=== PATIENT | male | born 1960 | race Caucasian/White ===

== ENCOUNTER 2025-03-20 13:10 | Emergency (ER) | payer OTHER, SELFPAY ==
--- OUTSIDE RECORDS SUMMARY | 2025-02-13 07:30 | XMS_ITS | Encounter Summary ---
Author Organization [facility] Address [address] [facility] [place] [address] Care Team Providers Care Commercial Appraiser Name Role Phone Anabell Lara MD Primary Care Provider + [phone] Neyda Horton PA-C Unavailable + [phone] Marito Lama MD Unavailable Encounter Details Date Type Department Care Team (Late st Contact Info) Description 02/13/2025 7:30 AM CDT Orders Only [facility] [address] [address] Persistent cough Social History Tobacco Use Types Packs/Day Years Used Date Smoking Tobacco: Never Smokeless Tobacco: Never Alcohol Use Standard Drinks/Week Comments No 0 (1 standard drink = 0.6 oz pur e alcohol) PHQ-2 Answer Date Recorded PHQ-2 Score 0 01/09/2025 Adolescent Education Answer Date Record ed Getting School Help Needed Not on file 03/20 Sex and Gender Information Value Date Recorded Sex Assigned at Not on file 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 Hurley, Ordering Provider for PFT andFENO This service provided today was under the supervising provider of the day Dr. Pham, who was available if needed. Pablo Mistry, RT documented in this encounter Plan of Treatment Upcoming Encounters Date Type Department Care Team (Late st Contact Info) Description 04/05/2025 8:00 PM CDT Therapy Visit [facility] [address] [facility] [address] [place] [address] 07/23/2025 10:30 AM SUPERVISOR SECURITIES VAULT Office Visit [address] [address] Marito Lama MD [address] [place] [address] documented as of this encounter Procedures Procedure Name Priority Date/Time Associated Diagnosis Comments IA NITRIC OXIDE GAS DETERMINATION Routine 02/13/2025 7:59 AM CDT Persistent cough IA DIFFUSING CAPACITY Routine 02/13/2025 7:59 AM CDT Persistent cough IA PLETHYSMOGRAPHY LUNG VOLUMES W/WO AIRWAY RESIST Routine 02/13/2025 7:59 AM CDT Persistent cough IA RESPIRATORY FLOW VOLUME LOOP Routine 02/13/2025 7:59 AM CDT Persistent cough IA VITAL CAPACITY TOTAL Routine 02/14/20 7:59 AM CDT Persistent cough EXHALED NITRIC OXIDE - FENO Routine 02/13/2025 7:56 AM CDT Persistent cough PFT GENERAL LAB TESTING Routine 02/14/20 7:34 AM CDT Persistent cough documented in this encounter Results * (ABNORMAL) Exhaled Nitric Oxide - FENO (02/13/2025 7:56 AM CDT) [facility] Pulmonary Function Test-FENO 55.5(A) 0 - 40 PPB us Parrish uHrley MD PFT ORDERABLES Final Result * General PFT Lab (Please always keep checked) (02/13/2025 7:34 AM CDT) [facility] FVC-Pred 3.32 L 02/13/2025 7:34 AM CDT [facility] [id number] 65 L 02/13/2025 7:34 AM CDT [facility] [id number]-Mbor 79 % 02/13/2025 7:34 AM CDT [facility] PFT [id number] 79 % 02/13/2025 7:34 AM CDT [facility] FEFMax-Pred 7.65 L/sec 02/13/2025 7:34 AM CDT [facility] PFT [id number] 2.27 L/sec 02/13/2025 7:34 AM CDT [facility] FVC-Pre 2.82 L 02/13/2025 7:34 AM CDT [facility] FVC-%Pred-Pre 84 % 02/13/2025 7:34 AM CDT [facility] P[facility] [id number]-Twr 78 L 02/13/2025 7:34 AM CDT [facility] FEV1-Pre 2.22 L 02/13/2025 7:34 AM CDT [facility] FEV1-%Pred-Pre 84 % 02/13/2025 7:34 AM CDT [facility] P[facility] [id number] 79 % 02/13/2025 7:34 AM CDT [facility] PFT [id number]-Bxn 79 % 02/13/2025 7:34 AM CDT [facility] PFT [id number]-%Pred-P re 99 % 02/13/2025 7:34 AM CDT [facility] FEFMax-Pre 6.45 L/sec 02/13/2025 7:34 AM CDT [facility] P[facility] FEFMax-%Pred-Pr e 84 % 02/13/2025 7:34 AM CDT [facility] [id number]-Dnt 2.13 L/sec 02/13/2025 7:34 AM CDT [facility] PFT TZB1465-%Pred-P re 93 % 02/13/2025 7:34 AM CDT [facility] P[facility] FIFMax-Pre 3.80 L/sec 02/13/2025 7:34 AM CDT [facility] ExpTime-Pre 5.82 sec 02/13/2025 7:34 AM CDT [facility] VC-Pred 4.01 L 02/13/2025 7:34 AM CDT [facility] P[facility] IC-Pred 2.93 L 02/13/2025 7:34 AM CDT [facility] ERV-Pred 0.95 L 02/13/2025 7:34 AM CDT [facility] P[facility] VC-Pre 2.84 L 02/13/2025 7:34 AM CDT [facility] VC-%Pred-Pre 70 % 02/13/2025 7:34 AM CDT [facility] PFT IC-Pre 2.49 L 02/13/2025 7:34 AM CDT [facility] P[facility] IC-%Pred-Pre 85 % 02/13/2025 7:34 AM CDT [facility] PFT ERV-Pre 0.35 L 02/13/2025 7:34 AM CDT [facility] ERV-%Pred-Pre 36 % 02/13/2025 7:34 AM CDT [facility] PFT FRCPleth-Pred 2.90 L 02/13/2025 7:34 AM CDT [facility] PFT RVPleth-Pred 1.91 L 02/13/2025 7:34 AM CDT [facility] P[facility] TLCPleth-Pred 5.85 L 02/13/2025 7:34 AM CDT [facility] P[facility] Gaw-Pred 1.03 L/s/cmH2O 02/13/2025 7:34 AM CDT [facility] PFT sRaw-Pred < 4.76 cmH2O*s 02/13/2025 7:34 AM CDT [facility] PFT sGaw-Pred 0.20 1/cmH2O*s 02/13/2025 7:34 AM CDT [facility] PFT FRCPleth-Pre 2.36 L 02/13/2025 7:34 AM CDT [facility] PFT FRCPleth-%Pred- Pre 81 % 02/13/2025 7:34 AM CDT [facility] PFT RVPleth-Pre 2.01 L 02/13/2025 7:34 AM CDT [facility] PFT RVPleth-%Pred-P re 105 % 02/13/2025 7:34 AM CDT [facility] PFT TLCPleth-Pre 4.86 L 02/13/2025 7:34 AM CDT [facility] PFT TLCPleth-%Pred- Pre 83 % 02/13/2025 7:34 AM CDT [facility] PFT DLCOunc-Pred 22.52 ml/min/mmH g 02/13/2025 7:34 AM CDT [facility] PFT DLCOunc-Pre 23.93 ml/min/mmH g 02/13/2025 7:34 AM CDT [facility] P[facility] DLCOunc-%Pred-P re 106 % 02/13/2025 7:34 AM CDT [facility] PFT VA-Pre 4.66 L 02/13/2025 7:34 AM CDT [facility] PFT VA-%Pred-Pre 89 % 02/13/2025 7:34 AM CDT [facility] PFT 02/13/2025 7:34 AM CDT Narrative [facility] PFT - 02/13/2025 7:34 AM CDT The FEV1/FVC is normal. The FEV1 is normal. The FVC is normal. The FEV1Q is 4.45 . The TLC by body plethysmography is normal. The DLCO is normal; however, the diffusing capacity was not corrected for the patient's hemoglobin. Conclusion: Normal spirometry. Normal lung volumes by plethysmography. The DLCO is normal. FeNO > 50 ppb suggests that airway eosinophilia and responsiveness to corticosteroids are likely. This Completed, Posted and Locked interpretation has been electronically signed by Christina Faustin on 02/14/2025 at 6:59 PM. us Parrish Hurley MD PFT ORDERABLES Final Result [facility] PFT documented in this encounter Visit Diagnoses Diagnosis Persistent cough Cough documented in this encounter Care Teams Commercial Appraiser Relationship Specialty Start Date End Date Anabell Lara MD [facility] [address] [place] [address] PCP - General Internal Medicine 02/28/24 Neyda Horton PA-C [address] [place], [place] [phone] Physician Psychopaedic Nurse Pulmonary Disease 10/03/24 Marito Lama MD [address] [address] Assigned Sleep Provider 01/16/25 documented as of this encounter
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
--- OUTSIDE RECORDS SUMMARY | 2025-03-20 11:45 | XMS_ITS | Encounter Summary ---
Author Organization [facility] Address [address] [facility] [place] [address] Care Team Providers Care Telecommunications Line Installer Name Role Phone Anabell Lara MD Primary Care Provider [phone] Neyda Horton PA-C Unavailable Marito Lama MD Unavailable Parrish Hurley MD Unavailable [phone] Reason for Visit * Reason Comments Urgent Care Right leg pain , wan ts to r/o blood clot aware no US . Encounter Details Date Type Department Care Team (Late st Contact Info) Description 03/20/2025 11:45 AM CDT Office Visit 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 Not on file Not on file documented as of this encounter Last Filed Vital Signs Vital Sign Reading Time Taken Comments Blood Pressure 112/67 03/20/2025 12:05 PM CDT Pulse 79 03/20/2025 12:05 PM CDT Temperature 36.5 C (97.7 F) 03/20/2025 12:05 PM CDT Respiratory Rate 18 03/20/2025 12:05 PM CDT Oxygen Saturation 98% 03/20/2025 12:05 PM CDT Inhaled Oxygen Concentration - - Weight 86.2 kg (190 lb) 03/20/2025 12:05 PM CDT Height 162.6 cm (5' 4) 03/20/2025 12:05 PM CDT Body Mass Index 32.61 03/20/2025 12:05 PM CDT documented in this encounter Patient Instructions * Patient Instructions* Ivania Mina PA-C - 03/20/2025 11:45 AM CDT I recommend follow up with Orthopedic as scheduled. Please go to the Emergency room if any worsening symptoms. documented in this encounter Progress Notes * Kristyn Collins LPN - 03/20/2025 11:45 AM CDT Urgent Care Clinic Visit Chief Complaint Patient presents with Urgent Care Right leg pain , wants to r/o blood clot aware no US . 03/20/2025 12:05 PM Additional Questions Roomed by LS Accompanied by self * Ivania Mina PA-C - 03/20/2025 11:45 AM CDT Assessment & Plan Pain of right lower extremity Acute problem. Per patient report he was evaluated by orthopedic provider at [facility] 4 days ago, per patient report x-ray of the right hip and right knee were negative. He is awaiting prior authorizationto undergo an MRI of the right hip and knee. He is presenting to urgent care today due to concern for a possible blood clot. Exam is negative for calf swelling or calf pain. No posterior knee pain. Negative Sekou's sign. Wells score of zero. We discussed very low suspicion for a DVT. Unfortunately patient is not an established patient with [facility], unable to refer to the [facility]. I discussed will need follow-up in the ED or an urgent care center with ultrasound availability to definitively rule out a DVT. Patient agrees with the plan. Return in about 1 week (around 03/27/2025) for Symptoms failing to improve. LILIAM Ross [facility] aSnds is a 64 year old male who presents to clinic today for the following health issues: Chief Complaint Patient presents with Urgent Care Right leg pain , wants to r/o blood clot aware no US . 03/20/2025 12:05 PM Additional Questions Roomed by LS Accompanied by self HPI Patient is presenting to urgent care today with complaint of right lower extremity, pain with ambulation. Onset of symptoms 4 days ago. He denies any trauma or injury. He denies any calf pain, deniesany posterior calf pain, denies any calf swelling. He notes he was evaluated by a provider at [facility], x-rays of the right knee and right hip were negative. It was recommended to have an MRI, currently undergoing prior authorization approval from his insurance. He notes he tried to schedule an appointment with his primary care provider today Dr. Lara in [place] and she recommended to be seen in urgent care for a possible blood clot. Patient denies any smoking history. No recent travel. No new medication. Review of Systems Constitutional, HEENT, cardiovascular, pulmonary, GI, , musculoskeletal, neuro, skin, endocrine and psych systems are negative, except as otherwise noted. Objective BP 112/67 Pulse 79 Temp 97.7 ??F (36.5 ??C) (Oral) Resp 18 Ht 1.626 m (5' 4) Wt 86.2 kg (190 lb) SpO2 98% BMI 32.61 kg/m?? Physical Exam GENERAL: alert and no distress MS: Right lower leg: no gross musculoskeletal defects noted, no edema, no calf edema noted, no tenderness to palpation right posterior knee, he is limping due to pain, Negative Sekou's sign documented in this encounter Plan of Treatment Upcoming Encounters Date Type Department Care Team (Late st Contact Info) Description 04/05/2025 8:00 PM CDT Therapy Visit 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 [address] [place] [address] PCP - General Internal Medicine 02/28/24 Neyda Horton PA-C [address] [place] [address] Physician Cytogeneticist Pulmonary Disease 10/03/24 Marito Lama MD [address] [place] [address] [place] [phone] Assigned Sleep Provider 01/16/25 Parrish Hurley MD [address] [place] [phone] Assigned Pulmonology Provider 03/19/25 documented as of this encounter
--- OUTSIDE RECORDS SUMMARY | 2025-03-20 13:12 | XMS_ITS | Encounter Summary ---
Author Organization [place] Address [address] [facility] 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 Gender Identity Not on file Sexual Orientation Not on file Occupation Industry Job Start Date Job End Date [employer] Not on file Not on file Not on file documented as of this encounter Plan of Treatment Upcoming Encounters Date Type Department Care Team (Late st Contact Info) Description 04/05/2025 8:00 PM CDT Therapy Visit [facility] Sleep [facility] [address] [phone] 07/23/2025 10:30 AM MEAT TEAM LEAD Office Visit [facility] Sleep [facility] [address] [place] [phone] Marito Lama MD [address] [place], [place] [address] documented as of this encounter Visit Diagnoses Not on filedocumented in this encounter Care Teams Solar Hot Water Installer Relationship Specialty Start Date End Date Anabell Lara MD [facility] [address] [place] [address] PCP - General Internal Medicine 02/28/24 Neyda Horton PA-C [address] [place], [place] [id number] Physician Manager Banking Pulmonary Disease 10/03/24 Marito Lama MD [address] [place], [place] [address] Assigned Sleep Provider 01/16/25 Parrish Hurley MD [address] [place] [id number] Assigned Pulmonology Provider 03/19/25 documented as of this encounter
--- OUTSIDE RECORDS SUMMARY | 2025-03-20 13:12 | XMS_ITS | Clinical Summary ---
Author Organization [facility] Address [address] [place] [address] Care Team Providers Care Starter Mechanic Name Role Phone Clinic, No Pcp Or Primary Care Provider Unavaila ble Allergies Active Allergy Reactions Criticality Noted Date Comments Fish Oil Other - Describe In Comment Field 06/15/2016 ALL fresh fruit ALL fresh fruit Pectin Anaphylaxis High 02/23/2017 Gluten Nausea Only 02/23/2017 Latex *Unknown 08/21/2014 Morphine Hives 01/22/2013 Simvastatin Other - Describe In Comment Field 10/25/2006 ELEVATED LIVER TESTS ELEVATED LIVER TESTS Unlisted Allergen (Include Detail In Comments) Anaphylaxis High 07/08/2015 All fresh fruit has epi pen. Hydrocodone-Acetaminop hen Tongue Swelling 08/21/2014 Medications EPIPEN 2-MOLINA 0.3 mg/0.3 mL (1:1,000) injection 5 Active rosuvastatin (CRESTOR) 20 mg tablet Take 1 Tablet by mouth. 2 Active mupirocin (BACTROBAN OINTMENT) ointment 2 Active hydrocortisone (ANUSOL-HC) 2.5 % rectal cream APPLY A THIN LAYER TO THE AFFECTED AREA(S) TOPICALLY ONCE A DAY 30 DAYS 3 Active fluticasone (50 mcg per actuation) nasal solution (FLONASE) 3 Active Arnuity Ellipta 100 mcg/actuation inhaler TAKE 1 PUFF BY MOUTH EVERY DAY 3 Active clindamycin 1% (CLEOCIN-T) 1 % gel APPLY A THIN LAYER TO THE NAVAL EXTERNALLY ONCE DAILY IN THE MORNING. 30 DAY(S) 3 Active albuterol HFA (PRO-AIR; VENTOLIN; PROVENTIL) 90 mcg/actuation inhaler Inhale 2 Puffs by mouth. 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 Per CT scan completed in the ED, he still has a few kidney stones that he has not passed. Will refer to urology for follow up. - REFERRAL TO UROLOGY Easy bruisability 03/28/2019 Overview (12/21/2021): Last Assessment & Plan: A/P: Patient reporting easy bruising in general with more bleeding than usual after getting cuts for over 6 months. We will refer to hematology for further evaluation and treatment. We will check LFTs to screen for liver-related cause of bruising. Additionally checking urinalysis to screen for hematuria. Last urinalysis was positive for hematuria due to kidney stone. He has not noticed any blood in urine. Completing hepatic function as well as BMP. 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 Strong famhx of cardiac disease. Previously started on simvastatin in 2006, since DC due to elevated liver enzymes likely 2/2 weight loss following celiac disease diagnosis, LFTs since been stable and WNL. Will start statin and cont to monitor, referral to Cardiology to discuss additional screening. P: - start atorvastatin 20 mg daily - referral to Cardiology History of subdural hematoma and surgery on 09/2507/27/2017 Shoulder-hand syndrome 05/25/2017 s/p left shoulder open massi ve rotator cuff repair (2x2), acromioplasty, AC joint resection, coracoid decompression and biceps resection and transplantation on 02/22/17 Dr. Ortiz 03/02/2017 Family history of heart disease 02/09/2017 Overview (12/21/2021): Last Assessment & Plan: A/P: Patient's father with history of heart attack in early 40s, therefore checking cholesterol. Will consider starting patient on cholesterol medication depending on results. - PANEL LIPID; Future Impingement syndrome of left shoulder 02/12/2016 Osteoporosis 01/20/2015 Preventative health care 11/25/2014 Overview (12/21/2021): Last Assessment & Plan: A: Routine screening labs ordered as listed below. P: - PANEL LIPID - GLYCOSYLATED HGB - A1C - PSA SCREEN (PROSTATE SPEC AGN) s/p right shouler open massi ve rotator cuff repair, acromioplasty, AC joint resection, biceps tenodesis on 08/20/[address] 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 Currently in remission. He is over due for follow up with dermatology, encouraged him to schedule this next available. Incidental lung nodule, greater than or equal to 8mm 08/08/2014 Overview (12/21/2021): Overview: 8 mm noncalcified nodule (R upper lobe) seen on right shoulder CT 07/21/2014 in [facility]. Repeat CT chest on 11/28/14 and 07/07/15 show stable nodules. Possible work exposures to diesal fuels and lawn chemicals. Last Assessment & Plan: A: Right shoulder CT one year ago showed a lung nodule. Previous chest CT 11/28/14 showed stable nodules. Will get another chest CT today given current infectious symptoms. Possible work exposures to diesal fuels and lawn chemicals. Otherwise no smoking hx. P: Chest CT today shows stable nodules; no need for repeat imaging. Pain in joint, pelvic region and thigh 1 Presbyopia 04/21/2010 Celiac disease 12/23/2006 Overview (12/21/2021): Last Assessment & Plan: A: Reports a history of celiac disease and is on a gluten free diet. He has not had a bone scan for quite a few years, thus this is ordered today. Encouraged him to schedule this next available. IGG is also ordered today. He is followed at [facility] for this, which I encouraged him to continue. Will continue to monitor. P: - TISSUE TRANSGLUTAMINASE IGG - DEXA BONE DENSITY, AXIAL SKELETON, [place] Lumbago 12/01/2002 Overview (12/21/2021): Pain Low Back Resolved Problems Problem Noted Date Diagnosed Date Resolved Date Chronic left shoulder pain 02/12/2016 0 10/31/2023 Rotator cuff tendinopathy of left shoulder 02/12/2016 04/17/2018 Biceps degeneration of left shoulder 02/12/2016 04/17/2018 Left shoulder pain 01/20/2015 4 Immunizations Immunization Administration Dates Next Due Tdap 11/10/2009 Family History Medical History Relation Name Comments Heart Disease Father Parkinsons Cancer Mother ? type No Known Problems Sister Parkinsons Relation Name Status Comments Father Alive Mother Alive Sister Alive Social History Tobacco Use Types Packs/Day Years Used Date Smoking Tobacco: Never Smokeless Tobacco: Never Alcohol Use Standard Drinks/Week Comments No 0 (1 standard drink = 0.6 oz pur e alcohol) Social Connections Answer Date Recorded Frequency of Communication with Friends and Fami ly Not on file 10/31/2023 Financial Resource Strain Answer Date R ecorded Difficulty of Paying Living Expenses Not on file 06/27/2021 Difficulty of Paying Living Expenses Not on file 06/27/2021 Sex and Gender Information Value Date Recorded Sex Assigned at Not on file Legal Sex Male 7:09 AM RAG GRADER Gender Identity Not on file Sexual Orientation Not on file 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 on file Not on file Not on file Obstetrics History Last Filed Vital Signs Vital Sign Reading Time Taken Comments Blood Pressure 148/80 11/16/2022 10:05 AM CDT Pulse 53 11/16/2022 10:05 AM CDT Temperature 36.6 C (97.8 F) 11/16/2022 10:05 AM CDT Respiratory Rate 12 11/16/2022 10:05 AM CDT Oxygen Saturation 99% 11/16/2022 10:05 AM CDT Inhaled Oxygen Concentration - - Weight 74.8 kg (165 lb) 11/16/2022 10:05 AM CDT Height 162.6 cm (5' 4) 02/16/2022 7:18 PM CDT Body Mass Index 28.32 02/16/2022 7:18 PM CDT Plan of Treatment Health Maintenance Due Date Last Done Comments Depression screening for age 12+ 1973 HIV for age 15-65 1976 Hepatitis C screening for age 18-79 1979 Colonoscopy through age 75 2006 Lipids for age 45-75 2006 Pneumococcal series for age 50+ (1 of 1 - PCV) 2011 Zoster (shingles) series for age 50+ (1 of 2) 2011 Tetanus booster 11/11/2019 11/10/2009 BMI (ht and wt on same day) for age 18+ 12/21/2022 12/21/2021, 02/24/2017, 02/23/2017, Additional history exists COVID-19 vaccine series ( - season) 2025 Influenza Vaccine (#1) 2025 RSV vaccine for adults or (1 - 1-dose 75+ series) 2036 Hepatitis B series for 19+ Aged Out N o longer eligible based on patient's age to complete this topic Insurance [employer] [place] [id number] [employer] [place] [id number] Care Teams Starter Mechanic Relationship Specialty Start Date End Date Clinic, No Pcp Or . PCP - General 07/06/15
--- OUTSIDE RECORDS SUMMARY | 2025-03-20 13:12 | XMS_ITS | Encounter Summary ---
Author Organization [place] Address [address] [place] [address] Care Team Providers Care Automation Software Engineer Name Role Phone Anabell Lara MD Primary Care Provider [phone] Neyda Horton PA-C Unavailable + [phone] Marito Lama MD Unavailable Encounter Details Date Type Department Care Team (Latest Contact Info) Description 02/08/2025 Travel Social History Tobacco Use Types Packs/Day [...] on file Legal Sex Male 3:28 AM NATURALIZATION EXAMINER Gender Identity Not on file Sexual Orientation Not on file Occupation Industry Job Start Date Job End Date [employer] Not on file Not on file Not on file documented as of this encounter Plan of Treatment Upcoming Encounters Date Type Department Care Team (Late st Contact Info) Description 04/05/2025 8:00 PM CDT Therapy Visit [facility] Sleep [address] [phone] 07/23/2025 10:30 AM NATURALIZATION EXAMINER Office Visit [address] [phone] Marito Lama MD [address] [place] [phone] documented as of this encounter Visit Diagnoses Not on filedocumented in this encounter Care Teams Automation Software Engineer Relationship Specialty Start Date End Date Anabell Lara MD [facility] [address] [place] [address] PCP - General Internal Medicine 02/28/24 Neyda Horton PA-C [address] [place], [place] [address] Physician Machine Boss Pulmonary Disease 10/03/24 Marito Lama MD [address] [facility] [address] [place], [place] [address] Assigned Sleep Provider 01/16/25 documented as of this encounter
--- OUTSIDE RECORDS SUMMARY | 2025-03-20 13:12 | XMS_ITS | Encounter Summary ---
Author Organization [place] Address [address] [facility] [place] [address] Care Team Providers Care Railroad Dispatcher Name Role Phone No Ref-Primary, Physician Primary Care Provider System, Provider Not In Primary Care Provider Un available No Ref-Primary, Physician Primary Care Provider Anabell Lara MD Primary Care Provider [phone] Neyda Horton PA-C Unavailable Marito Lama MD Unavailable Parrish Hurley MD Unavailable [phone] Encounter Details Date Type Department Care Team (Late st Contact Info) Description 10/03/2017 MyC Medical Advice [facility] [address] [phone] Nevaeh Fox RN Social History Tobacco Use Types Packs/Day Years Used Date Smoking Tobacco: Never Smokeless Tobacco: Never Alcohol Use Standard Drinks/Week Comments No 0 (1 standard drink = 0.6 oz pur e alcohol) Sex and Gender Information Value Date Recorded Sex Assigned at Not on file Legal Sex Male 3:28 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 PAINTER Gender Identity Not on file Sexual Orientation Not on file Occupation Industry Job Start Date Job End Date [employer] Not on file Not on file Not on file documented as of this encounter Plan of Treatment Upcoming Encounters Date Type Department Care Team (Late st Contact Info) Description 04/05/2025 8:00 PM CDT Therapy Visit [facility] [place] [address] [place] [phone] 07/23/2025 10:30 AM OIL PAINTER Office Visit [facility] [place] [address] [place] [phone] Marito Lama MD [address] [place], [place] [phone] documented as of this encounter Visit Diagnoses Not on filedocumented in this encounter Care Teams Railroad Dispatcher Relationship Specialty Start Date End Date No Ref-Primary, Physician PCP - General 07/21/14 03/23/19 System, Provider Not In PCP - General Clinic 03/24/19 03/24/19 No Ref-Primary, Physician PCP - General 02/15/20 02/27/24 Anabell Lara MD [facility] [address] [place] [address] PCP - General Internal Medicine 02/28/24 Neyda Horton PA-C [address] [place] [address] Physician Per Diem Interpreter Pulmonary Disease 10/03/24 Marito Lama MD [address] [phone] Assigned Sleep Provider 01/16/25 Parrish Hurley MD [address] [place] [id number] Assigned Pulmonology Provider 03/19/25 documented as of this encounter
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
--- OUTSIDE RECORDS SUMMARY | 2025-03-20 13:12 | XMS_ITS | Encounter Summary ---
Author Organization [facility] Address [address] [place] [address] Care Team Providers Care Underwater Welder Name Role Phone No Ref-Primary, Physician Primary Care Provider System, Provider Not In Primary Care Provider Un available No Ref-Primary, Physician Primary Care Provider Anabell Lara MD Primary Care Provider [phone] Neyda Horton PA-C Unavailable Marito Lama MD Unavailable Parrish Hurley MD Unavailable [phone] Encounter Details Date Type Department Care Team (Late st Contact Info) Description 10/10/2017 MyC Medical Advice [facility] [place] [address] [phone] Nevaeh Fox RN Social History Tobacco Use Types Packs/Day Years Used Date Smoking Tobacco: Never Smokeless Tobacco: Never Alcohol Use Standard Drinks/Week Comments No 0 (1 standard drink = 0.6 oz pur e alcohol) Sex and Gender Information Value Date Recorded Sex Assigned at Not on file Legal Sex Male 3:28 AM WASHER HAND Gender Identity Not on file Sexual Orientation Not on file Occupation Industry Job Start Date Job End Date [employer] Not on file Not on file Not on file documented as of this encounter Plan of Treatment Upcoming Encounters Date Type Department Care Team (Late st Contact Info) Description 04/05/2025 8:00 PM CDT Therapy Visit [facility] [place] [address] [place] [address] 07/23/2025 10:30 AM WASHER HAND Office Visit [facility] [address] [place] [phone] Marito Lama MD [address] [place], [place] [address] documented as of this encounter Visit Diagnoses Not on filedocumented in this encounter Care Teams Underwater Welder Relationship Specialty Start Date End Date No Ref-Primary, Physician PCP - General 07/21/14 03/23/19 System, Provider Not In PCP - General Clinic 03/24/19 03/24/19 No Ref-Primary, Physician PCP - General 02/15/20 02/27/24 Anabell Lara MD [facility] [address] [place] [address] PCP - General Internal Medicine 02/28/24 Neyda Horton PA-C [address] [place] [address] Physician Billing And Accounting Staff Assistant Pulmonary Disease 10/03/24 Marito Lama MD [address] [id number] Assigned Sleep Provider 01/16/25 Parrish Hurley MD [address] [place] [address] [id number] Assigned Pulmonology Provider 03/19/25 documented as of this encounter
--- OUTSIDE RECORDS SUMMARY | 2025-03-20 13:12 | XMS_ITS | Encounter Summary ---
Author Organization [facility] Address [address] [facility] [place] [address] Care Team Providers Care Coil Spring Assembler Name Role Phone Anabell Lara MD Primary Care Provider + [phone] Neyda Horton PA-C Unavailable + [phone] Marito Lama MD Unavailable Encounter Details Date Type Department Care Team (Latest Contact Info) Description 02/13/2025 Travel Social History Tobacco Use Types Packs/Day [...] on file Legal Sex Male 3:28 AM AIRCRAFT MAINTENANCE SUPERVISOR Gender Identity Not on file Sexual Orientation Not on file Occupation Industry Job Start Date Job End Date [employer] Not on file Not on file Not on file documented as of this encounter Plan of Treatment Upcoming Encounters Date Type Department Care Team (Late st Contact Info) Description 04/05/2025 8:00 PM CDT Therapy Visit [facility] [address] [phone] 07/23/2025 10:30 AM AIRCRAFT MAINTENANCE SUPERVISOR Office Visit [address] [address] Marito Lama MD [address] [place] [phone] documented as of this encounter Visit Diagnoses Not on filedocumented in this encounter Care Teams Coil Spring Assembler Relationship Specialty Start Date End Date Anabell Lara MD [facility] [address] [place] [address] PCP - General Internal Medicine 02/28/24 Neyda Horton PA-C [address] [place], [place] [phone] Physician Wild Animal Caretaker Pulmonary Disease 10/03/24 Marito Lama MD [address] [facility] [address] [place], [place] [address] Assigned Sleep Provider 01/16/25 documented as of this encounter
--- OUTSIDE RECORDS SUMMARY | 2025-03-20 13:13 | XMS_ITS | Clinical Summary ---
Author Organization [facility] Address [address] [address] Care Team Providers Care Coin Machine Assembler Name Role Phone Pcp, Pt Urmila SIMEON Primary Care Provider [phone] Source Comments You are receiving this document as you are listed as the primary care provider,follow-up provider, or the patient has been referred to you for consultation.This is in compliance with the Medicare and[facility] EHR Incentive Program,which states Providers who transition their patient to another setting of careor provider of care or refers their patient to another provider of care shouldprovide summary care record for each transition of care or referral. [employer] Allergies Active Allergy Reactions Criticality Noted Date Comments Fish Oil 06/15/2016 ALL fresh fruit Gluten Meal 02/20/2016 PN: celiac Latex 06/15/2016 Morphine 02/20/2016 Medications clobetasol prop emollient base 0.05 % cream Apply 1 Application topically two times a day. 60 g 0 6 Active mupirocin (BACTROBAN) 2 % ointmentIndicat ions:Visit for wound check Apply on wound once or twice daily. 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 Lumbago 12/01/2002 Overview (02/16/2017): Pain Low Back Social History Tobacco Use Types Packs/Day Years Used Date Smoking Tobacco: Never Sex and Gender Information Value Date Recorded Sex Assigned at Not on file Legal Sex Male 5:55 AM CDT Gender Identity Not on file Sexual Orientation Not on file Last Filed Vital Signs Vital Sign Reading Time Taken Comments Blood Pressure 119/71 06/15/2016 7:29 AM RICE MILLING SUPERVISOR Pulse 60 06/15/2016 7:29 AM RICE MILLING SUPERVISOR Temperature 36.6 C (97.9 F) 02/20/2016 10:49 AM CDT Respiratory Rate - - Oxygen Saturation - - Inhaled Oxygen Concentration - - Weight 78.5 kg (173 lb) 02/20/2016 10:49 AM CDT Height 160 cm (5' 3) 02/20/2016 10:49 AM CDT Body Mass Index 30.65 02/20/2016 10:49 AM CDT Plan of Treatment Health Maintenance Due Date Last Done Comments Colon Cancer Screening Plan Due 1960 Hep C Screening (Preventive Services) 1960 PSA Screening Discussion 1961 HIV Screening (Preventive Services) 1977 Adult Preventive Visit 1979 Cholesterol 1996 Pneumococcal Vaccine 50+ Yrs (2 of 2 - PCV) 2011 05/16/2007 Zoster/Shingles Vaccine (1 of 2) 2011 DTaP/Tdap/Td Vaccine (2 - Tdap) 11/11/2019 11/10/2009 COVID-19 Vaccine (1 - season) 2025 Influenza Vaccine (#1) 2025 5, 02/09/2012, 04/27/2010, Additional history exists RSV Vaccine (1 - 1-dose 75+ series) 2036 HepA Vaccine Aged Out No longer eligi ble based on patient's age to complete this topic HepB Vaccine Aged Out No longer eligi ble based on patient's age to complete this topic Hib Vaccine Aged Out No longer eligi ble based on patient's age to complete this topic IPV (Polio) Vaccine Aged Out No longe r eligible based on patient's age to complete this topic MCV4 Vaccine Aged Out No longer eligi ble based on patient's age to complete this topic Meningococcal B Vaccine Aged Out No l onger eligible based on patient's age to complete this topic Insurance MEDICA CHOICE Care Teams Coin Machine Assembler Relationship Specialty Start Date End Date Pcp, [place] [address] PCP - General 06/15/16
--- OUTSIDE RECORDS SUMMARY | 2025-03-20 13:13 | XMS_ITS | Encounter Summary ---
Author Organization [facility] Address [address] [facility] 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 Not on file Not on file Not on file documented as of this encounter Plan of Treatment Upcoming Encounters Date Type Department Care Team (Late st Contact Info) Description 04/05/2025 8:00 PM CDT Therapy Visit [facility] Sleep [address] [phone] 07/23/2025 10:30 AM ASSEMBLING MACHINE OPERATOR Office Visit [address] [address] Marito Lama MD [address] [place] [phone] documented as of this encounter Visit Diagnoses Not on filedocumented in this encounter Care Teams Radiology Services Manager Relationship Specialty Start Date End Date Anabell Lara MD [facility] [address] [place] [address] PCP - General Internal Medicine 02/28/24 Neyda Horton PA-C [address] [place], [place] [address] Physician Vp Clinical Pulmonary Disease 10/03/24 Marito Lama MD [address] [facility] [address] [place], [place] [address] Assigned Sleep Provider 01/16/25 documented as of this encounter
[2025-03-20 13:19] VITALS: BP 149/87; PULSE 78; RESP 16; TEMP 36.9; O2SAT 97; BMI 31.4
--- NOTE | 2025-03-20 13:29 | ED.GENADULT ---
HPI - General Adult General Chief complaint: Extremity Pain/Injury, Lower Stated complaint: right leg pain Time Seen by Provider: 03/20/25 13:19 History of Present Illness HPI narrative: Arrives complaining of right calf pain that he awoke with 4 days ago . Denies injury , no swelling or redness noted in triage . Seen at [facility] and had x-rays of knees and hips but no cause of pain identified. Alert and oriented, ABCs intact. 64-year-old man presenting to emergency depart with concern of right leg pain, specifically knee pain. Apparently was well when he went to bed and woke 4 days ago with this pain. Does not recall an injury. Was subsequently seen at an [facility] with x-rays of his knee and hips and seen by hip focused surgeon/physician. Confirm doubtful that it is his hip and he also says that his problem is in his knee. He has most discomfort when bearing weight on it but it hurts to fully extend and with flexion. No history of significant arthritis/arthropathy or gout. Pain has been persistent. With the pain in the back of the knee in particular and the upper calf there was concern of possible blood clot and was recommended to be seen in the emergency department. It is going to be a couple of weeks before he might get next step imaging and has been ordered for an MRI. And then further time before seen in follow-up. He is quite uncomfortable but not complaining. Related Data Home Medications ?Medication ?Instructions ?Recorded ?Confirmed albuterol sulfate 90 mcg/actuation inhalation 03/20/25 aerosol inhaler rosuvastatin 20 mg tablet 20 mg PO QPM cholesterol 03/20/25 03/20/25 Allergies Allergy/AdvReac Type Severity Reaction Status Date / Time morphine Allergy Intermediate Hives Verified 03/20/25 13:18 Review of Systems Status of ROS: Reports: 6 or more systems reviewed and unremarkable except as noted in History and below [facility] Social History Smoking Status: Never smoker How often do you have a drink containing alcohol: never AUDIT-C Alcohol total score: 0 Non-prescribed substance use: denies use Exam Narrative: Exam Narrative: Pleasant. NAD. Skin is warm and dry. The right knee and lower leg perhaps are subtly larger than the left. I do think there is a small effusion on the right knee. Mild discomfort to palpation posteriorly in the right and geniculate fossa. Does not have pain to palpation about the hamstring tendons. Has good strength to resisted flexion extension. Wil's is negative but Mateo's causes a bit of a click toward extension both with loaded medial and lateral compartments. Homans is negative. There is some discomfort to palpation about the MCL at the upper tibial insertion. Const: Vital Signs, click to edit/add: Vital Signs - 24 hr 03/20/25 13:19 03/20/25 17:00 Temperature 98.5 F 97.6 F Pulse Rate [Pulse Oximeter] 78 60 Respiratory Rate 16 18 Blood Pressure [Ri ght Upper Arm] 149/87 H 157/71 H Pulse Oximetry 97 98 Oxygen Delivery Me thod Room Air Room Air Documenting provider has reviewed patient's vital signs: yes Course Vital Signs Vital signs: Initial Vital Signs Temperature 98.5 F 03/20/25 13:19 Temperature Source Temporal Artery Scan 03/20/25 13:19 Pulse Rate 78 03/20/25 13:19 Respiratory Rate 16 03/20/25 13:19 Blood Pressure 149/87 H 03/20/25 13:19 Blood Pressure Mean 107 H 03/20/25 13:19 Pulse Oximetry 97 03/20/25 13:19 Oxygen Delivery Method Room Air 03/20/25 13:19 Vital Signs Temperature 98.5 F 03/20/25 13:19 Pulse Rate 78 03/20/25 13:19 Respiratory Rate 16 03/20/25 13:19 Blood Pressure 149/87 H 03/20/25 13:19 Pulse Oximetry 97 03/20/25 13:19 Oxygen Delivery Method Room Air 03/20/25 13:19 Temperature 97.6 F 03/20/25 17:00 Pulse Rate 60 03/20/25 17:00 Respiratory Rate 18 03/20/25 17:00 Blood Pressure 157/71 H 03/20/25 17:00 Pulse Oximetry 98 03/20/25 17:00 Oxygen Delivery Method Room Air 03/20/25 17:00 Medical Decision Making MDM Narrative Medical decision making narrative: Without injury would think this might be inflammatory like gout however he is not having that degree of tenderness or swelling erythema that I would typically see. Perhaps this is a ruptured Trinidad's cyst given the fullness and discomfort he is feeling particular posterior. Doubtful DVT. Most likely internal knee derangement but maybe a little strange, meniscal disruption I am thinking, but absent any injury. Reexamination with Mateo's does repeated pain/clicking as just about get to full extension I do discuss with receivable clerk that there is no DVT. There is a small Trinidad's cyst but without rupture. INDICATION: Swelling, pain. TECHNIQUE: Ultrasound venous duplex lower right extremity. Compression venous exam was performed using abarca-scale, color Doppler, and spectral Doppler analysis. COMPARISON: None. FINDINGS: Sonographic imaging demonstrates the right common femoral, deep femoral, superficial femoral, popliteal, posterior tibial, peroneal, greater saphenous and contralateral left common femoral veins to be fully compressible with normal color Doppler blood flow. Soft tissues elsewhere as imaged are unremarkable. IMPRESSION: No evidence of right lower extremity deep venous thrombosis. Dictated by Alexander Lujan MD @ 03/20/2025 2:27:58 PM With relatively unremarkable ultrasound I did placed in a knee immobilizer but with further conversation we are able to provide an MRI here today which I think is inevitable for Mr. Barron and will be definitive definitive in diagnosis. He would be interested in proceeding with this. I did independently review these it MRI images. There looks to be some disruption of the meniscus. Indication: Knee pain and swelling Technique: MRI of the right knee performed without intravenous contrast at 1.5 marycarmen Comparison: None Findings: Fluid: No substantial joint effusion. Menisci: Complex tearing of the medial meniscus body and posterior horn as well as medial extrusion of the medial meniscus body by 5 millimeters. Intact lateral meniscus. Ligaments: Intact ACL. Intact PCL. Some intermediate signal at the superior aspect of the fibular collateral ligament may represent scarring, but the LCL complex is otherwise intact. There is mild popliteus tendinopathy. There is soft tissue edema adjacent to the MCL without discrete discontinuity of the MCL compatible with a low-grade sprain. Extensor mechanism: Intact distal quadriceps tendon. Minimal patellar tendinopathy. Normal signal in Hoffa`s fat. Bone and cartilage: No acute fracture. There are tiny foci of moderate grade chondral fissuring at the patellar median ridge and lateral facet with a tiny amount of subchondral marrow edema/cystic change. Otherwise, scattered mild chondral thinning and fraying in the patellofemoral compartment. There is focal severe chondral thinning measuring 11 millimeters at the central weight-bearing medial femoral condyle with adjacent 3 millimeters of chondral delamination. Otherwise, scattered mild chondral thinning and fraying in the medial compartment. Mild chondral thinning and fraying in the central weight-bearing portion of the lateral compartment with otherwise intact articular cartilage. Miscellaneous: Trace Trinidad`s cyst. There is mild diffuse soft tissue edema as well as trace perifascial edema in the visualized posterior compartment of the leg. Small serpentine partially imaged T2 hyperintense lesions located inferior to the proximal tibiofibular joint probably represent prominent veins rather than ganglion cysts (3/). Impression: 1. Complex tearing of the medial meniscus body and posterior horn. Medial extrusion of the medial meniscus body by 5 millimeters. 2. Low-grade sprain of the medial collateral ligament. 3. Medial compartment predominant chondrosis with focal severe chondral thinning measuring 11 millimeters at the medial femoral condyle and adjacent 3 millimeters of chondral delamination. Less pronounced areas of chondrosis as detailed above. 4. Trace Trinidad`s cyst. Mild diffuse soft tissue edema as well as trace perifascial edema in the visualized posterior compartment of the leg. Dictated by Benny Andersen MD @ 03/20/2025 5:42:46 PM MRI confirms meniscal tears. Discussed findings with Mr. Barron are as well as Orthopedics on-call for recommendations regarding splinting, weight-bearing, follow-up. I have adjusted the knee immobilizer so that he cannot go to full extension. See patient discharge plan for further discussion Can bear weight as tolerated. Recommend not going to full extension or more extreme flexion of your knee. Can wear this adjusted/bent knee immobilizer for comfort when up and about but probably also good to spend time out of it to encourage some mobility. Take this disc of images with you to any follow-up appointments. You can certainly follow-up with [facility] but orthopedics locally would be happy to see you. Their phone number is [phone]. I did consult with them tonight. Can take up to 600 mg of ibuprofen 3 times daily. Can take up to 1000 mg of acetaminophen per dose. Either of these can be combined. Alternative to the ibuprofen might be taking up to 325 mg of naproxen twice daily. Consider icing your knee a few times daily as discussed over the next few days. Discharge Plan Discharge Clinical Impression: Knee pain, Right knee meniscal tear Patient Disposition: Home, Self-Care Condition: Stable Additional Instructions: Can bear weight as tolerated. Recommend not going to full extension or more extreme flexion of your knee. Can wear this adjusted/bent knee immobilizer for comfort when up and about but probably also good to spend time out of it to encourage some mobility. Take this disc of images with you to any follow-up appointments. You can certainly follow-up with [facility] but orthopedics locally would be happy to see you. Their phone number is [phone]. I did consult with them tonight. Can take up to 600 mg of ibuprofen 3 times daily. Can take up to 1000 mg of acetaminophen per dose. Either of these can be combined. Alternative to the ibuprofen might be taking up to 325 mg of naproxen twice daily. Consider icing your knee a few times daily as discussed over the next few days. Prescriptions: No Action albuterol sulfate 90 mcg/actuation HFA aerosol inhaler inhalation rosuvastatin 20 mg tablet 20 mg PO QPM Follow Up/Referrals: Quinton Fraser MD [Primary Care Provider, Family Practice] Stand Alone Forms: [employer] Info Instructions
--- NOTE | 2025-03-20 13:40 | CRLHL7_ITS ---
For Patients: As a result of the Cures Act, medical imaging exams and procedure reports are released immediately into your electronic medical record. You may view this report before your referring provider. If you have questions, please contact your health care provider. INDICATION: Swelling, pain. TECHNIQUE: Ultrasound venous duplex lower right extremity. Compression venous exam was performed using abarca-scale, color Doppler, and spectral Doppler analysis. COMPARISON: None. FINDINGS: Sonographic imaging demonstrates the right common femoral, deep femoral, superficial femoral, popliteal, posterior tibial, peroneal, greater saphenous and contralateral left common femoral veins to be fully compressible with normal color Doppler blood flow. Soft tissues elsewhere as imaged are unremarkable. IMPRESSION: No evidence of right lower extremity deep venous thrombosis. Dictated by Alexander Lujan MD @ 03/20/2025 2:27:58 PM Dictated by: Alexander Lujan MD @ 03/20/2025 14:28:14 (Electronically Signed)
--- NOTE | 2025-03-20 14:52 | CRLHL7_ITS ---
For Patients: As a result of the 21st Century Cures Act, medical imaging exams and procedure reports are released immediately into your electronic medical record. You may view this report before your referring provider. If you have questions, please contact your health care provider. Indication: Knee pain and swelling Technique: MRI of the right knee performed without intravenous contrast at 1.5 marycarmen Comparison: None Findings: Fluid: No substantial joint effusion. Menisci: Complex tearing of the medial meniscus body and posterior horn as well as medial extrusion of the medial meniscus body by 5 millimeters. Intact lateral meniscus. Ligaments: Intact ACL. Intact PCL. Some intermediate signal at the superior aspect of the fibular collateral ligament may represent scarring, but the LCL complex is otherwise intact. There is mild popliteus tendinopathy. There is soft tissue edema adjacent to the MCL without discrete discontinuity of the MCL compatible with a low-grade sprain. Extensor mechanism: Intact distal quadriceps tendon. Minimal patellar tendinopathy. Normal signal in Hoffa`s fat. Bone and cartilage: No acute fracture. There are tiny foci of moderate grade chondral fissuring at the patellar median ridge and lateral facet with a tiny amount of subchondral marrow edema/cystic change. Otherwise, scattered mild chondral thinning and fraying in the patellofemoral compartment. There is focal severe chondral thinning measuring 11 millimeters at the central weight-bearing medial femoral condyle with adjacent 3 millimeters of chondral delamination. Otherwise, scattered mild chondral thinning and fraying in the medial compartment. Mild chondral thinning and fraying in the central weight-bearing portion of the lateral compartment with otherwise intact articular cartilage. Miscellaneous: Trace Trinidad`s cyst. There is mild diffuse soft tissue edema as well as trace perifascial edema in the visualized posterior compartment of the leg. Small serpentine partially imaged T2 hyperintense lesions located inferior to the proximal tibiofibular joint probably represent prominent veins rather than ganglion cysts (/). Impression: 1. Complex tearing of the medial meniscus body and posterior horn. Medial extrusion of the medial meniscus body by 5 millimeters. 2. Low-grade sprain of the medial collateral ligament. 3. Medial compartment predominant chondrosis with focal severe chondral thinning measuring 11 millimeters at the medial femoral condyle and adjacent 3 millimeters of chondral delamination. Less pronounced areas of chondrosis as detailed above. 4. Trace Trinidad`s cyst. Mild diffuse soft tissue edema as well as trace perifascial edema in the visualized posterior compartment of the leg. Dictated by Benny Andersen MD @ 03/20/2025 5:42:46 PM (Electronically Signed)
[2025-03-20 17:00] VITALS: BP 157/71; PULSE 60; RESP 18; TEMP 36.4; O2SAT 98
== END 2025-03-20 18:50 | disposition home or self-care (01) ==
PROVIDERS: Emergency Provider Family Medicine; PCP Family Medicine
DX: S83.241A Other tear of medial meniscus, current injury, right knee, initial encounter (principal)
CPT/HCPCS: 73721; 93971; 99283; 99284